=== PATIENT | female | born 2000 | race Caucasian/White ===

== ENCOUNTER 2024-02-21 01:00 | Emergency (ER) | payer BC ==
[~2024-02-21] VITALS: Ht 172.7 cm; Wt 95.0 kg
[2024-02-21 01:08] VITALS: O2SAT 98
[2024-02-21 04:29] VITALS: BP 136/89; PULSE 86; RESP 20; TEMP 98.8
== END 2024-02-21 04:31 | disposition home or self-care (01) ==
LOC: ER 01:16
DX: M25.572 Pain in left ankle and joints of left foot (principal); R60.9 Edema, unspecified
CPT/HCPCS: 73600; 99283